=== PATIENT | female | born 1975 | race Caucasian/White ===

== ENCOUNTER 2017-12-01 11:27 | Day surgery (SDC) | payer BC ==
[~2017-12-01 11:27] MED LIST: Albuterol 0.042% 1.25 MG/3 ML Neb Soln NEB SCH; Bupivacaine 0.5%/EPINEPHrine 1:200,000 50 ML MDV ONE; Lactated Ringers 1,000 ML IV SCH; Lidocaine 1% with EPINEPHrine 1:100,000 20 ML MDV ONE; Lidocaine 1%/Sod Bicarbonate in NS 8.4% 1 ML Syringe IDERM PRN; Sodium Chloride 0.9% 10 ML Syringe FLUSH PRN
[2017-12-01] MEDS ORDERED: Propofol 200 MG/20 ML SDV ONE ×3 (11:29→13:05)
[2017-12-01] MEDS ORDERED: fentaNYL 100 MCG/2 ML SDV ONE ×2 (11:30→12:40)
[2017-12-01] MEDS ORDERED: Midazolam 1 MG/ML 2 ML SDV ONE (11:30)
[2017-12-01] MEDS ORDERED: Dexamethasone 4 MG/ML SDV ONE (11:32)
[2017-12-01] MEDS ORDERED: Ondansetron 4 MG/2 ML SDV ONE (11:32)
[2017-12-01] MEDS ORDERED: Lidocaine 1% 4 ML ONE (11:32)
[2017-12-01] MEDS ORDERED: Albuterol 0.083% 2.5 MG/3 ML Neb Soln ONE (11:53)
--- NOTE | 2017-12-01 12:08 | PCM.PREANE ---
Preanesthetic Assessment - Procedure Proposed Procedure: Excisional biopsy x2, right axilla, below groin flap - Anesthesia/Transfusion/Family Hx Anesthesia History: Prior Anesthesia Without Reaction Family History of Anesthesia Reaction: No Transfusion History: No Prior Transfusion(s) Intubation History: Unknown - Review of Systems General: No Symptoms Pulmonary: Other (reactive airway disease) Gastrointestinal: Other (GERD) Neurological: No Symptoms Other: Reports: None - Physical Assessment NPO Status Date: 11/30/17 NPO Status Time: 23:59 Pulse: 94 O2 Sat by Pulse Oximetry: 98 Respiratory Rate: 16 Blood Pressure: 133/90 Temperature: 36.3 C Vital Signs: Last Vital Signs Temp Pulse Resp BP Pulse Ox 98 12/01/17 11:58 Height: 1.65 m Weight: 91 kg ASA Class: 2 Mental Status: Alert & Oriented x3 Airway Class: Mallampati = 1 Dentition: Reports: Partial (lower ) Thyro-Mental Finger Breadths: 3 Mouth Opening Finger Breadths: 3 ROM/Head Extension: Full Lungs: Clear to Auscultation, Normal Respiratory Effort Cardiovascular: Regular Rate, Regular Rhythm - Allergies Allergies/Adverse Reactions: Allergies Allergy/AdvReac Type Severity Reaction Status Date / Time adhesive Allergy Cannot Verified 11/30/17 12:35 Remember cephalexin [From Keflex] Allergy Cannot Verified 11/30/17 12:35 Remember Cephalosporins Allergy Cannot Verified 11/30/17 12:35 Remember latex Allergy Cannot Verified 11/30/17 12:35 Remember levofloxacin [From Levaquin] Allergy Cannot Verified 11/30/17 12:35 Remember tetracycline Allergy Cannot Verified 11/30/17 12:35 Remember - Blood Blood Available: No Product(s) Available: None - Anesthesia Plan Pre-Op Medication Ordered: None - Acknowledgements Anesthesia Type Planned: General Anesthesia (2nd choice if MAC not tolerated ), MAC (1st choice ) Pt an Appropriate Candidate for the Planned Anesthesia: Yes Alternatives and Risks of Anesthesia Discussed w Pt/Guardian: Yes Pt/Guardian Understands and Agrees with Anesthesia Plan: Yes PreAnesthesia Questionnaire HEENT History: Reports: Allergic Rhinitis, Other (See Below) Other HEENT History: has 2 partials Cardiovascular History: Reports: None Respiratory History: Reports: Other (See Below) Other Respiratory History: reactive airway disease Gastrointestinal History: Reports: GERD Genitourinary History: Reports: None 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: Endometriosis Musculoskeletal History: Reports: None Neurological History: Reports: Migraines Psychiatric History: Reports: None Endocrine/Metabolic History: Reports: None Hematologic History: Reports: None Immunologic History: Reports: None Oncologic (Cancer) History: Reports: None Dermatologic History: Reports: Other (See Below) Other Dermatologic History: hidradenitis, skin lesion excision - Past Surgical History Head Surgeries/Procedures: Reports: None Cardiovascular Surgical History: Reports: None Respiratory Surgical History: Reports: None GI Surgical History: Reports: Colonoscopy Female Surgical History: Reports: None Male Surgical History: Reports: None Endocrine Surgical History: Reports: None Neurological Surgical History: Reports: None Musculoskeletal Surgical History: Reports: None Oncologic Surgical History: Reports: None - SUBSTANCE USE Smoking Status *Q: Current Every Day Smoker Recreational Drug Use History: No - HOME MEDS Home Medications: Home Meds Cetirizine [ZyrTEC] 10 mg PO DAILY 11/30/17 [History] Clindamycin Phos/Benzoyl Perox [Clindamycin-Benzoyl Perox 1-5%] 1 dose TOP BID 11/30/17 [History] Docusate Sodium [Stool Softener] 100 mg PO DAILY PRN 11/30/17 [History] Fluticasone/Vilanterol [Breo Ellipta 100-25 MCG Inhalation Kit] 1 puff INH DAILY PRN 11/30/17 [History] Lactobacillus Combination No.4 [Probiotic] 1 cap PO DAILY 11/30/17 [History] Spironolactone [Aldactone] 100 mg PO DAILY 11/30/17 [History] Triamcinolone Acetonide [Nasacort] 1 dose NASBOTH DAILY 11/30/17 [History] Varenicline [Chantix] 1 mg PO DAILY 11/30/17 [History] oxyCODONE HCl/Acetaminophen [oxyCODONE-Acetaminophen 5-325] 1 tab PO Q6H PRN 08/19 [History] - CURRENT (IN HOUSE) MEDS Current Meds: Current Medications Albuterol (Proventil Neb Soln) 2.5 mg NEB ONETIME EMILY Stop: 12/01/17 16:00 Lactated Ringer's (Ringers, Lactated) 1,000 mls @ 125 mls/hr IV ASDIRECTED EMILY Stop: 12/01/17 23:00 Lidocaine/Sodium Bicarbonate (Buffered Lidocaine 1% In Ns 8.4%) 0.25 ml IDERM ONETIME PRN PRN Reason: Prior to IV Start Stop: 12/01/17 18:00 Sodium Chloride (Saline Flush) 10 ml FLUSH ASDIRECTED PRN PRN Reason: Keep Vein Open Stop: 12/01/17 18:00 Discontinued Medications Albuterol (Proventil Neb Soln) Confirm Administered Dose 2.5 mg .ROUTE .STK-MED ONE Stop: 12/01/17 11:54 Last Admin: 12/01/17 11:57 Dose: 2.5 mg Bupivacaine HCl/Epinephrine Bitart (Marcaine 0.5%/Epinephrine 1:200,000) Confirm Administered Dose 50 ml .ROUTE .STK-MED ONE Stop: 12/01/17 11:22 Dexamethasone (Dexamethasone) Confirm Administered Dose 4 mg .ROUTE .STK-MED ONE Stop: 12/01/17 11:33 Fentanyl (Sublimaze) Confirm Administered Dose 100 mcg .ROUTE .STK-MED ONE Stop: 12/01/17 11:31 Lidocaine HCl (Xylocaine-Mpf 1%) Confirm Administered Dose 4 mls @ as directed .ROUTE .STK-MED ONE Stop: 12/01/17 11:33 Lidocaine/Epinephrine (Xylocaine 1% With Epinephrine 1:100,000) Confirm Administered Dose 20 ml .ROUTE .STK-MED ONE Stop: 12/01/17 11:22 Midazolam HCl (Versed 1 Mg/Ml) Confirm Administered Dose 2 mg .ROUTE .STK-MED ONE Stop: 12/01/17 11:31 Ondansetron HCl (Zofran) Confirm Administered Dose 4 mg .ROUTE .STK-MED ONE Stop: 12/01/17 11:33 Propofol (Diprivan 20 Ml) Confirm Administered Dose 400 mg .ROUTE .STK-MED ONE Stop: 12/01/17 11:30
[2017-12-01] MEDS ORDERED: Ketamine 500 mg/10 ML MDV ONE (12:16)
--- NOTE | 2017-12-01 13:16 | PCM.OPNOTE ---
- General Post-Op/Procedure Note Date of Surgery/Procedure: 12/01/17 Operative Procedure(s): 1. Excision of hidradenitis right axilla. 2. 4 mm punch biopsy supra vulvar area. 3. 6 mm punch biopsy left groin Findings: Small hidradenitis 3 Pre Op Diagnosis: Hidradenitis Post-Op Diagnosis: Same Anesthesia Technique: Local, MAC, Moderate Sedation Primary Surgeon: Jose Fernandez Pathology: Multiple biopsies 3 EBL in mLs: 1 Complications: None Condition: Good Free Text/Narrative:: After adequate IV sedation and analgesia was obtained with monitoring the patient's right axilla supra vulva area and left groin were prepped with Betadine and draped sterilely. A cc of local was given in each area. Within the right axilla used I a 15 blade to elliptically excise the involved gland. I closed the skin with 3 interrupted 5-0 nylon's. I used a 4 mm punch biopsy to remove the lesion just above the vulva. This was closed with 2 interrupted 5-0 nylon. The left groin lesion was closed after 6 mm punch biopsy with 3 interrupted 5-0 nylon sutures. Dermabond was applied for the dressing in each area. There were no comp occasions.
--- NOTE | 2017-12-01 13:25 | PCM48HPAN ---
Post Anesthesia Note - EVALUATION WITHIN 48HRS OF ANESTHETIC Vital Signs in Normal Range: Yes Patient Participated in Evaluation: Yes Respiratory Function Stable: Yes Airway Patent: Yes Cardiovascular Function Stable: Yes Hydration Status Stable: Yes Pain Control Satisfactory: Yes Nausea and Vomiting Control Satisfactory: Yes Mental Status Recovered: Yes Pulse Rate: 105 SaO2: 98 Resp Rate: 18 Temperature: 36.4 C Blood Pressure: 122/78
[2017-12-01] MEDS ORDERED: Acetaminophen 325 MG Tab PO ONE (13:38)
[2017-12-01] MEDS ORDERED: Acetaminophen/oxyCODONE 325-5 MG Tab PO ONE (13:48)
[2017-12-01 15:00] VITALS: BP 140/90
== END 2017-12-01 14:25 | disposition home or self-care (01) ==
LOC: JD.SDS 11:27
PROVIDERS: ATTEND Surgery
DX: L73.2 Hidradenitis suppurativa (principal); L72.0 Epidermal cyst; J30.9 Allergic rhinitis, unspecified; K21.9 Gastro-esophageal reflux disease without esophagitis; G43.109 Migraine with aura, not intractable, without status migrainosus; J45.909 Unspecified asthma, uncomplicated; F17.200 Nicotine dependence, unspecified, uncomplicated; Z88.1 Allergy status to other antibiotic agents; Z91.040 Latex allergy status; Z98.890 Other specified postprocedural states
CPT/HCPCS: 11100; 11450; 56605; 94640; A9270; J1100; J2001; J2250; J2405; J3010; J7120; 00400; J2704

== ENCOUNTER 2021-08-08 11:14 | Emergency (ER) | payer BC ==
[2021-08-08 11:28] VITALS: BP 134/84; PULSE 94
[2021-08-08] MEDS ORDERED: Sodium Chloride 0.9% 10 ML Syringe FLUSH PRN (12:11)
[2021-08-08] MEDS ORDERED: Codeine/Promethazine 10-6.25 MG/5 ML Syrup 5 ML UD Cup PO ONE (12:12)
[2021-08-08] MEDS ORDERED: Ketorolac 30 MG/ML SDV IVPUSH ONE (12:12)
--- NOTE | 2021-08-08 12:17 | EDM.PDOC ---
ED HPI GENERAL MEDICAL PROBLEM - General Chief Complaint: Respiratory Problem Stated Complaint: SOB, CHEST PAIN Time Seen by Provider: 08/08/21 11:43 Source of Information: Reports: Patient, RN Notes Reviewed History Limitations: Reports: No Limitations - History of Present Illness INITIAL COMMENTS - FREE TEXT/NARRATIVE: Patient is a 45-year-old female who presents to the ER for evaluation of her ongoing cough and illness. States that she has been ill for about a week, she was evaluated her sick clinic few days ago diagnosed with pneumonia by chest x- ray and sent home with antibiotics. States that she had a COVID green and it was negative. States that her was also sick at home about a week ago, and he tested negative as well. States that she is not feeling much better, she thought she was feeling better yesterday, but today she feels worse than she has felt. States she feels feverish but has no thermometer at home, has a cough that is nonproductive. She is not having any nausea vomiting or diarrhea. Patient states that she is coughing so hard, that she is "peeing herself". Generalized Pain Score (Numeric/FACES): 7 - Related Data Allergies Allergy/AdvReac Type Severity Reaction Status Date / Time adhesive Allergy Cannot Verified 08/08/21 11:30 Remember cephalexin [From Keflex] Allergy Cannot Verified 08/08/21 11:30 Remember Cephalosporins Allergy Cannot Verified 08/08/21 11:30 Remember latex Allergy Cannot Verified 08/08/21 11:30 Remember levofloxacin [From Levaquin] Allergy Cannot Verified 08/08/21 11:30 Remember tetracycline Allergy Cannot Verified 08/08/21 11:30 Remember Home Meds: Home Meds Cetirizine [ZyrTEC] 10 mg PO DAILY 11/30/17 [History] Lactobacillus Combination No.4 [Probiotic] 1 cap PO DAILY 11/30/17 [History] Spironolactone [Aldactone] 100 mg PO DAILY 11/30/17 [History] Triamcinolone Acetonide [Nasacort] 1 dose NASBOTH DAILY 11/30/17 [History] Albuterol [Proventil Neb Soln] 1 dose INH ASDIRECTED 08/08/21 [History] Azithromycin [Zithromax] 250 mg PO ASDIRECTED 08/08/21 [History] Azithromycin [Zithromax] 250 mg PO DAILY #6 tab 08/08/21 [Rx] Benzonatate 100 mg PO ASDIRECTED 08/08/21 [History] Codeine Phosphate/Guaifenesin [Guaifen-Codeine 200-20 mg/10Ml] 10 ml PO ASDIRECTED PRN #120 ml 08/08/21 [Rx] Ketorolac [Toradol] 10 mg PO TID PRN #9 tab 08/08/21 [Rx] Past Medical History HEENT History: Reports: Allergic Rhinitis, Other (See Below) Other HEENT History: has 2 partials Cardiovascular History: Reports: None Respiratory History: Reports: Other (See Below) Other Respiratory History: reactive airway disease Gastrointestinal History: Reports: GERD Genitourinary History: Reports: None 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 Musculoskeletal History: Reports: None Neurological History: Reports: Migraines Psychiatric History: Reports: None Endocrine/Metabolic History: Reports: None Hematologic History: Reports: None Immunologic History: Reports: None Oncologic (Cancer) History: Reports: None Dermatologic History: Reports: Other (See Below) Other Dermatologic History: hidradenitis, skin lesion excision - Infectious Disease History Infectious Disease History: Reports: Novel Coronavirus - Past Surgical History Head Surgeries/Procedures: Reports: None Cardiovascular Surgical History: Reports: None Respiratory Surgical History: Reports: None GI Surgical History: Reports: Colonoscopy Female Surgical History: Reports: None Endocrine Surgical History: Reports: None Neurological Surgical History: Reports: None Musculoskeletal Surgical History: Reports: None Oncologic Surgical History: Reports: None Social & Family History - Tobacco Use Tobacco Use Status *Q: Current Every Day Tobacco User Years of Tobacco use: 3 Packs/Tins Daily: 1 - Caffeine Use Caffeine Use: Reports: Coffee - Recreational Drug Use Recreational Drug Use: No ED ROS GENERAL - Review of Systems Review Of Systems: Comprehensive ROS is negative, except as noted in HPI. ED EXAM, GENERAL - Physical Exam Exam: See Below Exam Limited By: No Limitations General Appearance: Alert, WD/WN, No Apparent Distress Respiratory/Chest: No Respiratory Distress, Lungs Clear, Normal Breath Sounds, No Accessory Muscle Use, Chest Non-Tender Cardiovascular: Normal Peripheral Pulses, Regular Rate, Rhythm, No Edema Peripheral Pulses: 2+: Radial (L), Radial (R) Extremities: Normal Inspection, Normal Capillary Refill Neurological: Alert, Oriented, Normal Cognition, No Motor/Sensory Deficits Psychiatric: Normal Affect, Normal Mood Skin Exam: Warm, Dry, Intact, Normal Color, No Rash Course - Vital Signs Last Recorded V/S: Last Vital Signs Temp 96.9 F 08/08/21 11:28 Pulse 94 08/08/21 11:28 Resp 20 08/08/21 11:28 BP 134/84 08/08/21 11:28 Pulse Ox 94 L 08/08/21 11:28 - Orders/Labs/Meds Orders: Active Orders 24 hr Category Date Time Status Peripheral IV Care [RC] . DIRECTED Care 08/08/21 12:11 Ordered Chest 1V Frontal [CR] Stat Exams 08/08/21 12:11 Ordered Sodium Chloride 0.9% [Saline Flush] Med 08/08/21 12:11 Ordered 10 ml FLUSH ASDIRECTED PRN Peripheral IV Insertion Adult [OM.PC] Routine Oth 08/08/21 12:11 Ordered Medication Orders Sodium Chloride (Sodium Chloride 0.9% 10 Ml Syringe) 10 ml FLUSH ASDIRECTED PRN PRN Reason: Keep Vein Open Last Admin: 08/08/21 12:34 Dose: 10 ml Documented by: HERMMIC Labs: Laboratory Tests 08/08/21 08/08/21 08/08/21 Range/Units 11:24 12:20 12:20 WBC 4.16 (3.98-10.04) K/mm3 RBC 4.41 (3.98-5.22) M/mm3 Hgb 13.2 (11.2-15.7) gm/dl Hct 39.3 (34.1-44.9) % MCV 89.1 (79.4-94.8) fl MCH 29.9 (25.6-32.2) pg MCHC 33.6 (32.2-35.5) g/dl RDW Std Deviation 43.4 (36.4-46.3) fL Plt Count 259 (182-369) K/mm3 MPV 10.1 (9.4-12.3) fl Neut % (Auto) 62.6 (34.0-71.1) % Lymph % (Auto) 25.2 (19.3-51.7) % [place] % (Auto) 9.6 (4.7-12.5) % Eos % (Auto) 1.9 (0.7-5.8) Baso % (Auto) 0.5 (0.1-1.2) % Neut # (Auto) 2.60 (1.56-6.13) K/mm3 Lymph # (Auto) 1.05 L (1.18-3.74) K/mm3 [place] # (Auto) 0.40 H (0.24-0.36) K/mm3 Eos # (Auto) 0.08 (0.04-0.36) K/mm3 Baso # (Auto) 0.02 (0.01-0.08) K/mm3 Sodium 138 (136-145) mEq/L Potassium 3.9 (3.5-5.1) mEq/L Chloride 101 (98-107) mEq/L Carbon Dioxide 23 (21-32) mEq/L Anion Gap 17.9 H (5-15) BUN 10 (7-18) mg/dL Creatinine 0.7 (0.55-1.02) mg/dL Est Cr Clr Drug Dosing 88.56 mL/min Estimated GFR (MDRD) > 60 (>60) mL/min BUN/Creatinine Ratio 14.3 (14-18) Glucose 97 (70-99) mg/dL Calcium 8.8 (8.5-10.1) mg/dL Total Bilirubin 0.3 (0.2-1.0) mg/dL AST 23 (15-37) U/L ALT 29 (14-59) U/L Alkaline Phosphatase 48 (46-116) U/L C-Reactive Protein 4.7 H* (<1.0) mg/dL Total Protein 7.3 (6.4-8.2) g/dl Albumin 3.6 (3.4-5.0) g/dl Globulin 3.7 gm/dL Albumin/Globulin Ratio 1.0 (1-2) Influenza Type A RNA Negative (NEGATIVE) RSV RNA (INAAT) Negative (NEGATIVE) Influenza Type B RNA Negative (NEGATIVE) SARS-CoV-2 RNA ([facility]) Negative (NEGATIVE) Meds: Medications Generic Name Dose Route Start Last Admin Trade Name Freq PRN Reason Stop Dose Admin Sodium Chloride 10 ml 08/08/21 12:11 08/08/21 12:34 Sodium Chloride 0.9% 10 Ml Syringe FLUSH 10 ml ASDIRECTED PRN Administration Keep Vein Open Discontinued Medications Generic Name Dose Route Start Last Admin Trade Name Freq PRN Reason Stop Dose Admin Ketorolac Tromethamine 30 mg 08/08/21 12:12 08/08/21 12:33 Ketorolac 30 Mg/Ml Sdv IVPUSH 08/08/21 12:13 30 mg ONETIME ONE Administration Promethazine HCl/Codeine 10 ml 08/08/21 12:12 08/08/21 12:34 Codeine/Promethazine 10-6.25 Mg/5 Ml Syrup 5 Ml Ud Cup PO 08/08/21 12:13 10 ml ONETIME ONE Administration - Re-Assessments/Exams Free Text/Narrative Re-Assessment/Exam: 08/08/21 12:16 COVID/flu/RSV swab was obtained at the time of triage, we will go ahead and get a line started, give her some Toradol check some labs and repeat a chest x-ray. Patient verbalized understanding of the plan. 08/08/21 13:42 Patient's Covid/flu/RSV swab were negative again today. Chest x-ray was reviewed by Dr. Ortiz and myself, he thinks that it does look a little bit better as compared to her chest x-ray done 2 days ago. White count within normal limits with patient is on antibiotics, metabolic panel demonstrates slight dehydration as well as her CRP elevated at 4.7. Patient is allergic to multiple antibiotics. We will go ahead and extend her azithromycin course, give her some codeine cough medication and few tablets of Toradol for ongoing management as she states that this seemed to help her the most. I did caution the patient that she should monitor her symptoms over the weekend, likely should be feeling better but if she is not feeling much better by Wednesday she should get reexamined and she verbalized understanding. Departure - Departure Time of Disposition: 13:43 Disposition: Home, Self-Care 01 Condition: Good Clinical Impression: Pneumonia Qualifiers: Pneumonia type: due to unspecified organism Laterality: left Lung location: lower lobe of lung Qualified Code(s): J18.9 - Pneumonia, unspecified organism - Discharge Information *PRESCRIPTION DRUG MONITORING PROGRAM REVIEWED*: Yes *COPY OF PRESCRIPTION DRUG MONITORING REPORT IN PATIENT LAUREN: No Prescriptions: Codeine Phosphate/Guaifenesin [Guaifen-Codeine 200-20 mg/10Ml] 10 ml PO ASDIRECTED PRN #120 ml PRN Reason: Cough Ketorolac [Toradol] 10 mg PO TID PRN #9 tab PRN Reason: Pain Azithromycin [Zithromax] 250 mg PO DAILY #6 tab Instructions: Community-Acquired Pneumonia, Adult, [id number] Referrals: Helga Chang, CLASSIFICATION INSPECTOR [Primary Care Provider] - Forms: ED Department Discharge Additional Instructions: You were evaluated in the ER today for your ongoing illness. Your COVID/flu/RSV screens were negative at today's visit. It is likely that you are suffering from pneumonia, but your chest x-ray did show that it did appear to be getting a little bit better. All other labs are essentially unremarkable for the most part. Please continue all other medications as previously prescribed. You have been given prescriptions for a few different medications. You will need to continue/prolong your azithromycin course, you have been given another 6 days of this. I have given you a prescription for Toradol as well for general aches and pains. You can take 1 tablet 3 times a day until gone. This medication can be pretty hard on your stomach so I would recommend that you take a medication like Pepcid with this to protect your stomach lining. Third medication be for cough medication you may take 10 mL every 4 hours as needed for ongoing cough. Do not drive while using this cough medication. This medication was electronically sent to the [place] pharmacy located in the [facility] store. You should be getting better in the next few days, however if you do not have any symptomatic improvement by Wednesday I would recommend that you get seen by another provider to make sure that symptoms are not worsening. Thank you for allowing and choosing us to be involved in your healthcare needs. Sepsis Event Note (ED) - Focused Exam Vital Signs: Vital Signs Temp Pulse Resp BP Pulse Ox 08/08/21 11:28 96.9 F 94 20 134/84 94 L - My Orders Last 24 Hours: My Active Orders 08/08/21 12:11 Peripheral IV Care [RC] . DIRECTED Chest 1V Frontal [CR] Stat Sodium Chloride 0.9% [Saline Flush] 10 ml FLUSH ASDIRECTED PRN Peripheral IV Insertion Adult [OM.PC] Routine - Assessment/Plan Last 24 Hours: My Active Orders 08/08/21 12:11 Peripheral IV Care [RC] . DIRECTED Chest 1V Frontal [CR] Stat Sodium Chloride 0.9% [Saline Flush] 10 ml FLUSH ASDIRECTED PRN Peripheral IV Insertion Adult [OM.PC] Routine
[2021-08-08 12:18] LABS: CORONAVIRUS COVID-19 NAA NEGATIVE (NEGATIVE)
--- NOTE | 2021-08-08 16:31 | CR ---
EXAM: XR CHEST 1 VIEW LOCATION: [facility] [employer] [facility] DATE/TIME: 08/08/2021 12:14 PM INDICATION: Cough/fever COMPARISON: 08/06/2021 IMPRESSION: A left basilar opacity has not significantly changed from the prior study and is concerning for airspace disease. No pneumothorax. No pleural fluid appreciated. Normal size of the heart. SIGNED BY: Dory Martinez MD 08/08/2021 3:16 PM MTDHannah
== END 2021-08-08 14:02 | disposition home or self-care (01) ==
LOC: JD.ED 11:14
DX: J18.9 Pneumonia, unspecified organism (principal); K21.9 Gastro-esophageal reflux disease without esophagitis; Z91.048 Other nonmedicinal substance allergy status; Z88.1 Allergy status to other antibiotic agents; Z72.0 Tobacco use; Z20.822 Contact with and (suspected) exposure to COVID-19
CPT/HCPCS: 0241U; 36415; 71045; 80053; 85025; 86140; 96374; 99283; A9270; J1885; 99285

== ENCOUNTER 2025-04-14 21:03 | Emergency (ER) | payer BC ==
[2025-04-14] MEDS: Hydrocortisone/Neomycin/Polymyxin B Otic Susp 10 ML Bottle EARRT STA (21:51)
[2025-04-14 21:55] VITALS: BP 147/85; PULSE 84
== END 2025-04-14 21:50 | disposition home or self-care (01) ==
LOC: JD.ED 21:03
DX: H60.501 Unspecified acute noninfective otitis externa, right ear (principal); J45.909 Unspecified asthma, uncomplicated; K21.9 Gastro-esophageal reflux disease without esophagitis; F17.210 Nicotine dependence, cigarettes, uncomplicated; Z86.16 Personal history of COVID-19; Z79.899 Other long term (current) drug therapy; Z91.040 Latex allergy status; Z88.1 Allergy status to other antibiotic agents; Z91.048 Other nonmedicinal substance allergy status; Z88.8 Allergy status to other drugs, medicaments and biological substances
CPT/HCPCS: 99282; A9270